=== PATIENT | female | born 1965 | race Caucasian/White ===

== ENCOUNTER 2024-04-07 12:33 | Emergency (ER) | payer OTHER ==
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
[2024-04-07] MEDS ORDERED: NA CHLORIDE 0.9% 1,000 ML ONE (12:50)
[2024-04-07 13:11] LABS: Absolute Basophils 0.1 K/uL (0-0.5); Absolute Eosinophils 0.3 K/uL (0-0.5); Absolute Lymphocytes (CBC) 2.2 K/uL (0.7-4.9); Absolute Monocytes 0.4 K/uL (0.1-1.3); Absolute Neutrophil 4.8 K/uL (1.8-8.0); Basophils % 0.9 % (0-1.3); Eosinophils % 4.2 % (0-4.4); Hemoglobin 13.4 g/dL (12.0-15.0); Lymphocytes % 28.3 % (15.3-44.8); MCH 29.8 pg (27.0-35.0); MCHC 32.6 g/dL (32.0-36.0); MCV 91.4 fL (80-100); MPV 8.4 fL (7.6-11.3); Monocytes % 5.1 % (3.3-12.3); Neutrophils % 61.5 % (41.7-73.7); Platelets 354 thou/uL (152-406); RBC Red Blood Cell Count 4.49 M/uL (3.86-4.86); Red Cell Distribution Width 13.1 % (12.1-15.2)
[2024-04-07 13:12] LABS: Specific Gravity 1.005 (1.005-1.030); Urine Bilirubin NEGATIVE (Negative); Urine Blood Negative (Negative); Urine Clarity Clear (Clear); Urine Color Colorless (Yellow); Urine Glucose NEGATIVE (Negative); Urine Ketones NEGATIVE (Negative); Urine Microscopic Reflex YN NO UMIC; Urine Nitrite NEGATIVE (Negative); Urine Protein NEGATIVE (Negative); Urine Urobilinogen Normal (Normal); Urine pH 6.5 (5.0-7.0)
[2024-04-07 13:30] LABS: Albumin 3.7 g/dL (3.4-5.0); Albumin/Globulin Ratio 0.9 (1.1-1.8); Bilirubin Total 0.3 mg/dL (0.2-1.0); Globulin 3.9 g/dL (2.3-3.5); Protein, Total 7.6 g/dL (6.4-8.2)
--- NOTE | 2024-04-07 16:05 | RAD REPORT ---
EXAMINATION: CT ABDOMEN AND PELVIS WITH CONTRAST CLINICAL INDICATION: ABD PAIN TECHNIQUE: CT abdomen and pelvis was performed, after the administration of IV contrast, as per [facility] protocol. Axial, sagittal and coronal reconstructions were obtained. One or more of the following dose reduction techniques were used: Automated exposure control, adjustment of the mA and k V according to patient size, and iterative reconstruction. Unless otherwise specified, incidental findings do not require dedicated imaging follow-up. COMPARISON: No prior exam. FINDINGS: LOWER CHEST: The visualized lung bases are clear. LIVER: Multiple cysts are present in the liver, benign in appearance, largest measuring 5 cm posterio r right lobe. No aggressive liver lesion or biliary dilatation. Cholecystectomy clips. SPLEEN: Normal size. No focal lesion. PANCREAS: No mass, ductal dilation, or prosper-pancreatic fluid. ADRENALS: Normal; no mass. KIDNEYS: Normal size and contour. No hydronephrosis. GASTROINTESTINAL TRACT: No evidence of free air, significant intra-abdominal free fluid, bowel obstru ction or abscess. Small fat-containing umbilical hernia. APPENDIX: Normal appendix. LYMPH NODES: No lymphadenopathy. MUSCULOSKELETAL: No acute or suspicious osseous abnormality. ADDITIONAL FINDINGS: None. IMPRESSION: No acute or concerning abnormalities seen in the abdomen or pelvis.
--- NOTE | 2024-04-07 16:32 | EDPHYS ---
Physician Documentation [facility] Name: Neena Painting Age: 59 yrs Sex: Female : 1965 Arrival Date: 04/07/2024 Time: 12:33 Bed 16 Private MD: ED Physician Tigre Maldonado HPI: 04/07 17:16 This 59 yrs old Female presents to ER via Ambulatory with complaints of Urinary Problem.kb 17:16 Pt is a 59 year old female who presents for possible UTI. States she has had difficulty kb urinating for 2 weeks, was diagnosed with a UTI and took entire course of antibiotics with no improvement. Denies fever and dysuria. States she has also had diarrhea for 3 days with weakness and joint pain. . Historical: - Allergies: 12:47 Sulfa (Sulfonamide Antibiotics); aa5 - PMHx: 12:47 Adrenal infufficiency; Lupus; Depressive disorder; aa5 12:48 Fibromyalgia; aa5 - PSHx: 12:48 hysterectomy; Cholecystectomy; aa5 - Immunization history:: Adult Immunizations unknown. - Infectious Disease History:: Denies. - Social history:: Smoking status: Patient reports the use of cigarette tobacco products. ROS: 17:16 Constitutional: As per HPI kb Exam: 17:16 Constitutional: This is a well developed, well nourished patient who is awake, alert, kb and in no acute distress. Head/Face: Normocephalic, atraumatic. ENT: Moist Mucous membranes Cardiovascular: Regular rate Respiratory: Respirations even and unlabored. No increased work of breathing. Talking in full sentences Skin: Warm, dry with normal turgor. Normal color. MS/ Extremity: Pulses equal, no cyanosis. Neurovascular intact. Full, normal range of motion. Neuro: Awake and alert, GCS 15, oriented to person, place, time, and situation. Moves all extremities. Normal gait. 17:16 Abdomen/GI: Inspection: abdomen appears normal, Bowel sounds: normal, Palpation: soft, in all quadrants, mild abdominal tenderness, in the suprapubic area, Vital Signs: 12:44 BP 133 / 78; Pulse 78; Resp 18 S; Temp 98.4(TE); Pulse Ox 99% on R/A; aa5 14:10 BP 123 / 80; Pulse 56; Resp 16 S; Pulse Ox 95% on R/A; kc6 15:07 BP 147 / 99; Pulse 65; Resp 16 S; Pulse Ox 100% on R/A; kc6 16:01 BP 140 / 84; kc6 16:39 BP 141 / 81; Pulse 61; Resp 16; Pulse Ox 96% ; ll1 MDM: 12:39 Patient medically screened. kb 17:16 Differential diagnosis: UTI, colitis, diverticulitis, gastroenteritis. Data reviewed: kb vital signs, nurses notes. Historians other than the Patient: Spouse/Significant Other: . Counseling: I had a detailed discussion with the patient and/or guardian regarding the historical points, exam findings, and any diagnostic results supporting the discharge/admit diagnosis, lab results, radiology results, the need for outpatient follow up, a family practitioner, to return to the emergency department if symptoms worsen or persist or if there are any questions or concerns that arise at home. 04/07 12:47 Order name: CBC with Diff; Complete Time: 13:18 kb 04/07 12:47 Order name: CMP; Complete Time: 13:39 kb 04/07 12:47 Order name: Lipase; Complete Time: 13:39 kb 04/07 12:47 Order name: Urinalysis w/ reflexes; Complete Time: 13:18 kb 04/07 15:30 Order name: CT Abd/Pelvis - IV Contrast Only; Complete Time: 16:09 kb 04/07 12:47 Order name: IV Saline Lock; Complete Time: 13:06 kb 04/07 12:47 Order name: Labs collected and sent; Complete Time: 13:06 kb Administered Medications: 13:06 Drug: NS 0.9% IV 1000 ml IV at 1 bolus Per protocol; to be given as a bolus over 60 kc6 minutes Route: IV; Rate: 1 bolus; Site: left antecubital; 14:15 Follow up: Response: No adverse reaction; IV Status: Completed infusion; IV Intake: kc6 1000ml Disposition Summary: 04/07/24 16:31 Discharge Ordered Notes: Location: Home kb Condition: Stable kb Diagnosis - Diarrhea, unspecified kb Followup: kb - With: Emergency Department - When: As needed - Reason: Worsening of condition Followup: kb - With: Private Physician - When: 2 - 3 days - Reason: Recheck today's complaints, Continuance of care, Re-evaluation by your physician Discharge Instructions: - Discharge Summary Sheet kb - Food Choices to Help Relieve Diarrhea, Adult kb - Diarrhea, Adult, [id number] kb Forms: - Medication Reconciliation Form kb - Antibiotic Education kb - Prescription Opioid Use kb - Patient Portal Instructions kb - Leadership Thank You Letter kb Addendum: 04/09/2024 09:21 I was immediately available for consultation during this patient's visit. I did not e c2 personally see the patient or discuss the patient with the MICKEY. . Signatures: Dispatcher [employer] EDMS Casandra Devlin FNP-C PRASANTH-Manda Bermudez, RN RN aa5 Connie Doshi RN RN kc6 Tigre Maldonado MD MD ec2 Corrections: (The following items were deleted from the chart) 04/07 12:48 12:48 CBC+H.LAB.BRZ ordered. EDMS EDMS 12:48 12:48 COMPREHENSIVE METABOLIC PANEL+C.LAB.BRZ ordered. EDMS EDMS 12:48 12:48 LIPASE+C.LAB.BRZ ordered. EDMS EDMS 12:48 12:48 Urinalysis+U.LAB.BRZ ordered. EDMS EDMS 12:48 12:47 PMHx: Lupus erythematosus; aa5 aa5
--- NOTE | 2024-04-07 16:32 | ER ---
Nurse's Notes [facility] Name: Neena Painting Age: 59 yrs Sex: Female : 1965 Arrival Date: 04/07/2024 Time: 12:33 Bed 16 Private MD: Diagnosis: Diarrhea, unspecified Presentation: 04/07 12:44 Chief complaint: Patient states: "I feel weak and all my joints hurt". Pt reports aa5 difficulty urinating. Pt reports diarrhea x 3 days ago. Coronavirus screen: At this time, the client does not indicate any symptoms associated with coronavirus-19. Ebola Screen: Patient denies travel to an Ebola-affected area in the 21 days before illness onset. Initial Sepsis Screen: Does the patient meet any 2 criteria? No. Patient's initial sepsis screen is negative. Does the patient have a suspected source of infection? No. Patient's initial sepsis screen is negative. Risk Assessment: Do you want to hurt yourself or someone else? Patient reports no desire to harm self or others. Onset of symptoms was March 2024. 12:44 Acuity: LADONNA 3 aa5 12:44 Method Of Arrival: Ambulatory aa5 Triage Assessment: 16:39 Pain: Denies pain. ll1 Historical: - Allergies: 12:47 Sulfa (Sulfonamide Antibiotics); aa5 - PMHx: 12:47 Adrenal infufficiency; Lupus; Depressive disorder; aa5 12:48 Fibromyalgia; aa5 - PSHx: 12:48 hysterectomy; Cholecystectomy; aa5 - Immunization history:: Adult Immunizations unknown. - Infectious Disease History:: Denies. - Social history:: Smoking status: Patient reports the use of cigarette tobacco products. Screenin:06 [facility] ED Fall Risk Assessment (Adult) History of falling in the last 3 months, kc6 including since admission No falls in past 3 months (0 pts) Confusion or Disorientation No (0 pts) Intoxicated or Sedated No (0 pts) Impaired Gait No (0 pts) Mobility Assist Device Used No (0 pt) Altered Elimination No (0 pt) Score/Fall Risk Level 0 - 2 = Low Risk Oriented to surroundings. Abuse screen: Denies threats or abuse. Denies injuries from another. Nutritional screening: No deficits noted. Tuberculosis screening: No symptoms or risk factors identified. Assessment: 13:07 General: Appears in no apparent distress. comfortable, well groomed, well developed, kc6 Behavior is calm, cooperative, appropriate for age. Neuro: Level of Consciousness is awake, alert, obeys commands, Oriented to person, place, time, situation, Appropriate for age Reports weakness. Cardiovascular: Capillary refill < 3 seconds. Respiratory: Airway is patent Trachea midline Respiratory effort is even, unlabored, Respiratory pattern is regular, symmetrical. GI: No signs and/or symptoms were reported involving the gastrointestinal system. : Urine is clear, Reports inability to void. EENT: No signs and/or symptoms were reported regarding the EENT system. Derm: No signs and/or symptoms reported regarding the dermatologic system. Skin is intact, is healthy with good turgor, Skin is pink, warm \\T\\ dry. Musculoskeletal: No signs and/or symptoms reported regarding the musculoskeletal system. Circulation, motion, and sensation intact. Capillary refill < 3 seconds, Range of motion: intact in all extremities. 14:09 Reassessment: Patient appears in no apparent distress at this time. No changes from kc6 previously documented assessment. Patient and/or family updated on plan of care and expected duration. Pain level reassessed. Patient is alert, oriented x 3, equal unlabored respirations, skin warm/dry/pink. 15:07 Reassessment: Patient appears in no apparent distress at this time. No changes from kc6 previously documented assessment. Patient and/or family updated on plan of care and expected duration. Pain level reassessed. Patient is alert, oriented x 3, equal unlabored respirations, skin warm/dry/pink. 16:01 Reassessment: Patient appears in no apparent distress at this time. No changes from kc6 previously documented assessment. Patient and/or family updated on plan of care and expected duration. Pain level reassessed. Patient is alert, oriented x 3, equal unlabored respirations, skin warm/dry/pink. 16:11 Reassessment: Gait steady to lobby, needs to get something out of her car. ll1 16:39 Reassessment: No changes from previously documented assessment. Patient and/or family ll1 updated on plan of care and expected duration. Pain level reassessed. Patient is alert, oriented x 3, equal unlabored respirations, skin warm/dry/pink. Vital Signs: 12:44 BP 133 / 78; Pulse 78; Resp 18 S; Temp 98.4(TE); Pulse Ox 99% on R/A; aa5 14:10 BP 123 / 80; Pulse 56; Resp 16 S; Pulse Ox 95% on R/A; kc6 15:07 BP 147 / 99; Pulse 65; Resp 16 S; Pulse Ox 100% on R/A; kc6 16:01 BP 140 / 84; kc6 16:39 BP 141 / 81; Pulse 61; Resp 16; Pulse Ox 96% ; ll1 ED Course: 12:37 Patient arrived in ED. ra3 12:39 Casandra Devlin, [facility]. kb 12:39 Tigre Maldonado MD is Attending Physician. kb 12:44 Arm band placed on. aa5 12:46 Triage completed. aa5 12:51 Connie Doshi, JACQUELINE is Primary Nurse. kc6 13:06 Patient has correct armband on for positive identification. Bed in low position. Call kc6 light in reach. Side rails up X 1. Adult w/ patient. Pulse ox on. NIBP on. Door closed. Noise minimized. Lights dimmed. Warm blanket given. Pillow given. 13:06 Inserted saline lock: 20 gauge in left antecubital area, using aseptic technique. Blood kc6 collected. Flushed with 10 mL NS. Patient maintains SpO2 saturation greater than 95% on room air. 14:23 Warm blanket given. kc6 16:00 CT Abd/Pelvis - IV Contrast Only In Process Unspecified. EDMS 16:39 No provider procedures requiring assistance completed. IV discontinued, intact, ll1 bleeding controlled, No redness/swelling at site. Pressure dressing applied. 16:40 Provided Education on: return to ED for worsening symptoms. ll1 Administered Medications: 13:06 Drug: NS 0.9% IV 1000 ml IV at 1 bolus Per protocol; to be given as a bolus over 60 kc6 minutes Route: IV; Rate: 1 bolus; Site: left antecubital; 14:15 Follow up: Response: No adverse reaction; IV Status: Completed infusion; IV Intake: kc6 1000ml Medication: 16:39 VIS not applicable for this client. ll1 Intake: 14:15 IV: 1000ml; Total: 1000ml. kc6 Outcome: 16:31 Discharge ordered by . kb 16:39 Discharged to home ambulatory, ll1 16:39 Condition: stable 16:39 Discharge instructions given to patient, family, Instructed on discharge instructions, follow up and referral plans. Demonstrated understanding of instructions, follow-up care, 16:40 Patient left the ED. ll1 Signatures: Dispatcher [employer] EDCasandra Ruiz, PRASANTH-Nicole GLEZP-Madna Bermudez RN RN aa5 Monty Bruce RN RN ll1 Connie Doshi RN RN kc6 Tammy Alamo 3 Corrections: (The following items were deleted from the chart) 12:47 12:44 Chief complaint: Patient states: "I feel weak and all my joints hurt". Pt reports aa5 difficulty urinating. aa5 12:48 12:47 PMHx: Lupus erythematosus; aa5 aa5
[2024-04-07 20:07] VITALS: TEMP 98.4
[2024-04-07 20:13] VITALS: BP 141/81; O2SAT 96
== END 2024-04-07 16:40 | disposition home or self-care (01) ==
LOC: ER 12:33
DX: R19.7 Diarrhea, unspecified (principal); Z72.0 Tobacco use; R10.819 Abdominal tenderness, unspecified site
CPT/HCPCS: 85025; 36415; 81003; 83690; 80053; 74177; Q9967; J7030; 96360; 99284